=== PATIENT | female | born 1995 | race Caucasian/White ===

== ENCOUNTER 2019-10-04 17:03 | Emergency (ER) | payer BC ==
[~2019-10-04] VITALS: Ht 170.2 cm; Wt 72.6 kg
--- NOTE | 2019-10-04 17:19 | NUR ---
PT BIB SELF FOR MEDICAL CLEARANCE FOR [facility], SPIDER BITE AT R LEG, PT IS AAOX4, NOT IN RESPIRATORY DISTRESS, HOOKED TO MONITOR, KEPT RESTED AND COMFORTABLE, WILL CONTINUE TO MONITOR.
--- NOTE | 2019-10-04 18:30 | NUR ---
ER PHLEB AT BEDSIDE FOR BLOOD DRAW.
--- NOTE | 2019-10-04 18:36 | NUR ---
SEEN AND EXAMINED BY DAVE PICKERING
--- NOTE | 2019-10-04 18:37 | NUR ---
URINAL GIVEN BUT UNABLE TO PROVIDE URINE SPECIMEN THIS TIME.
[2019-10-04 18:41] LABS: BASOPHILS % (AUTO) 0.4 % (0.0-2.0); EOSINOPHILS % (AUTO) 1.2 % (0.0-6.0); HEMATOCRIT 37 % (33-45); HEMOGLOBIN 13.2 g/dL (11.5-14.8); LYMPHOCYTES # (AUTO) 1.6 /CMM (0.8-4.8); MEAN CORPUSCULAR HGB CONC 36 g/dl (31.0-36.0); MEAN CORPUSCULAR VOLUME 90 fL (82-100); MONOCYTES # (AUTO) 0.2 /CMM (0.1-1.30); MONOCYTES % (AUTO) 6.7 % (2.0-12.0); NEUTROPHILS # (AUTO) 1.6 /CMM (1.8-8.9); NEUTROPHILS % (AUTO) 45.7 % (43.0-81.0); PLATELET COUNT (AUTO) 185 /CMM (150-450); RED BLOOD CELL COUNT(AUTO) 4.08 MIL/uL (4.0-5.2); WHITE BLOOD COUNT (AUTO) 3.5 K/uL (4.3-11.0)
--- NOTE | 2019-10-04 18:47 | NUR ---
URINE SPECIMEN COLLECTED AND SENT TO LAB.
[2019-10-04 18:50] LABS: CALCIUM, SERUM 9.3 mg/dL (8.5-10.1); CARBON DIOXIDE 27 mmol/L (21-32); CHLORIDE 106 mmol/L (98-107); CREATININE 0.7 mg/dL (0.6-1.3); GLUCOSE 79 mg/dL (74-106); POTASSIUM 3.7 mmol/L (3.5-5.1); SODIUM SERUM 141 mmol/L (136-145); UREA NITROGEN, BLOOD 25 mg/dL (7-18)
[2019-10-04 18:56] LABS: APPEARANCE,URINE Clear (CLEAR); BILIRUBIN,URINE SMALL (NEGATIVE); BLOOD, URINE Small Ery/uL (NEGATIVE); COLOR,URINE Yellow (YELLOW); KETONES,URINE Negative (NEGATIVE); LEUKOCYTE ESTERASE ,URINE Negative (NEGATIVE); NITRITE, URINE Negative (NEGATIVE); PROTEIN,URINE Trace mg/dl (NEGATIVE); UGLUCOSE Negative (NEGATIVE)
[2019-10-04 18:56] LABS: ACETAMINOPHEN < 2 ug/ml (10-30); ALANINE AMINOTRANSFERASE 22 U/L (12-78); ALBUMIN 3.8 g/dL (3.4-5.0); ALCOHOL, BLOOD < 3 mg/dL (0-0); ALKALINE PHOSPHATASE 82 U/L (46-116); ASPARTATE AMINOTRANSFERASE 29 U/L (15-37); BILIRUBIN,DIRECT 0.2 mg/dL (0.0-0.2); BILIRUBIN,TOTAL 0.6 mg/dL (0.2-1.0); SALICYLATE 2.3 mg/dL (2.8-20.0); TOTAL PROTEIN, SERUM 7.4 g/dL (6.4-8.2)
[2019-10-04 19:06] LABS: BACTERIA,URINE Rare /HPF (None Seen); SQUAMOUS EPITHELIAL CELL,UR Few /HPF (None Seen); WBC,URINE 0-2 /HPF (0-3)
--- NOTE | 2019-10-04 19:43 | NUR ---
Pt ok to discharge per Lida PICKERING. Patient discharged to home in stable condition. Written and verbal after care instructions given. Patient verbalizes understanding of instruction.Patient is awake and alert to self, day, and place. Pt ambulatory with a steady gait
[2019-10-04 19:44] VITALS: BP 125/79
== END 2019-10-04 19:45 | disposition home or self-care (01) ==
LOC: ER 17:03
DX: L03.115 Cellulitis of right lower limb (principal); F14.10 Cocaine abuse, uncomplicated; F11.10 Opioid abuse, uncomplicated; G40.909 Epilepsy, unspecified, not intractable, without status epilepticus; F17.200 Nicotine dependence, unspecified, uncomplicated
CPT/HCPCS: 36415; 80048; 80076; 80305; 80307; 80329; 81001; 84703; 85025; 99283; 99406; G0480; 81000-TC

== ENCOUNTER 2019-11-01 15:03 | Emergency (ER) | payer BC ==
[~2019-11-01] VITALS: Ht 170.2 cm; Wt 72.6 kg
[2019-11-01 15:14] VITALS: BP 102/65
--- NOTE | 2019-11-01 15:30 | NUR ---
patient came in to the er c/o throat pain x 2 days. on room air, breathing evenly and unlabored. kept comfortable, will continue to monitor accordingly.
--- NOTE | 2019-11-01 15:50 | NUR ---
Patient discharged to home in stable condition. Written and verbal after care instructions given. Patient verbalizes understanding of instruction.
== END 2019-11-01 15:50 | disposition home or self-care (01) ==
LOC: ER 15:03
DX: J02.0 Streptococcal pharyngitis (principal); G40.909 Epilepsy, unspecified, not intractable, without status epilepticus; F17.200 Nicotine dependence, unspecified, uncomplicated; R59.0 Localized enlarged lymph nodes

== ENCOUNTER 2020-06-12 21:10 | Emergency (ER) | payer BC ==
[~2020-06-12] VITALS: Ht 167.6 cm; Wt 68.0 kg
[2020-06-12 21:10] VITALS: BP 121/93
[2020-06-12] MEDS ORDERED: LORAZEPAM 1 MG TABLET ONE (21:13)
[2020-06-12] MEDS: LORAZEPAM 1 MG TABLET PO ONE (21:16)
--- NOTE | 2020-06-12 21:25 | NUR ---
Patient is ambulatory with a steady gait.
--- NOTE | 2020-06-12 21:26 | NUR ---
PATIENT PICKED UP BY [facility].
--- NOTE | 2020-06-12 21:27 | NUR ---
Patient discharged to home in stable condition. Written and verbal after care instructions given. Patient verbalizes understanding of instruction.
== END 2020-06-12 21:28 | disposition home or self-care (01) ==
LOC: ER 21:14
DX: F13.20 Sedative, hypnotic or anxiolytic dependence, uncomplicated (principal); F41.9 Anxiety disorder, unspecified; G40.909 Epilepsy, unspecified, not intractable, without status epilepticus; F17.200 Nicotine dependence, unspecified, uncomplicated

== ENCOUNTER 2020-06-22 14:55 | Emergency (ER) | payer BC ==
[~2020-06-22] VITALS: Ht 170.2 cm; Wt 52.2 kg
--- NOTE | 2020-06-22 15:05 | NUR ---
CAME TO ER C/O SEIZURE X 2 TODAY. PATIENT A/OX4, BREATHING EVEN AND UNLABORED, NO SOB NOTED. NEEDS ATTENDED, KEPT COMFORTABLE.
[2020-06-22] MEDS ORDERED: LORAZEPAM INJ 2 MG/ML VIAL ONE ×2 (15:19→16:44)
[2020-06-22 15:24] LABS: BASOPHILS % (AUTO) 0.3 % (0.0-2.0); EOSINOPHILS % (AUTO) 9.5 % (0.0-6.0); HEMATOCRIT 36 % (33-45); HEMOGLOBIN 12.5 g/dL (11.5-14.8); LYMPHOCYTES # (AUTO) 1.4 /CMM (0.8-4.8); LYMPHOCYTES % (AUTO) 35.9 % (20.0-44.0); MEAN CORPUSCULAR HGB CONC 35 g/dl (31.0-36.0); MEAN CORPUSCULAR VOLUME 89 fL (82-100); MONOCYTES # (AUTO) 0.3 /CMM (0.1-1.30); MONOCYTES % (AUTO) 6.7 % (2.0-12.0); NEUTROPHILS # (AUTO) 1.8 /CMM (1.8-8.9); NEUTROPHILS % (AUTO) 47.6 % (43.0-81.0); PLATELET COUNT (AUTO) 195 /CMM (150-450); WHITE BLOOD COUNT (AUTO) 3.8 K/uL (4.3-11.0)
[2020-06-22] MEDS ORDERED: LORAZEPAM INJ 2 MG/ML VIAL IVP ONE ×2 (15:30→17:00)
[2020-06-22 15:33] LABS: CALCIUM, SERUM 9.2 mg/dL (8.5-10.1); CREATININE 0.8 mg/dL (0.6-1.3); POTASSIUM 4.8 mmol/L (3.5-5.1)
[2020-06-22 15:39] LABS: ALBUMIN 3.7 g/dL (3.4-5.0); BILIRUBIN,DIRECT 0.1 mg/dL (0.0-0.2); BILIRUBIN,TOTAL 0.4 mg/dL (0.2-1.0); TOTAL PROTEIN, SERUM 6.8 g/dL (6.4-8.2)
--- NOTE | 2020-06-22 16:34 | NUR ---
PATIENT TAKEN TO CT
--- NOTE | 2020-06-22 18:01 | NUR ---
AA/OX4, breathing even and unlabored, no sob noted. Needs attended. IV removed. Catheter intact and site benign. Pressure and 4x4 applied to site. No bleeding noted.Patient discharged to home in stable condition. Written and verbal after care instructions given. Patient verbalizes understanding of instruction.
[2020-06-22 18:03] VITALS: BP 126/72
== END 2020-06-22 18:03 | disposition home or self-care (01) ==
LOC: ER 14:59
DX: G40.909 Epilepsy, unspecified, not intractable, without status epilepticus (principal)
CPT/HCPCS: 36415; 70450; 80048; 80076; 80184; 80305; 84703; 85025; 96374; 96376; 99284; J2060 ×2

== ENCOUNTER 2020-10-09 16:03 | Emergency (ER) | payer BC ==
[~2020-10-09] VITALS: Ht 170.2 cm; Wt 54.4 kg
[2020-10-09 16:49] VITALS: BP 117/66
[2020-10-09] MEDS ORDERED: LORAZEPAM 1 MG TABLET ONE (16:55)
[2020-10-09] MEDS ORDERED: LORAZEPAM 1 MG TABLET PO ONE (17:00)
--- NOTE | 2020-10-09 18:18 | NUR ---
COVID NEGATIVE RESULT PER LAB.
--- NOTE | 2020-10-09 18:42 | NUR ---
Patient discharged to home in stable condition. Written and verbal after care instructions given. Patient verbalizes understanding of instruction.
== END 2020-10-09 17:30 | disposition home or self-care (01) ==
LOC: ER 16:04
DX: Z00.00 Encounter for general adult medical examination without abnormal findings (principal); F13.239 Sedative, hypnotic or anxiolytic dependence with withdrawal, unspecified; Z20.828 Contact with and (suspected) exposure to other viral communicable diseases; G40.909 Epilepsy, unspecified, not intractable, without status epilepticus; F17.200 Nicotine dependence, unspecified, uncomplicated; R00.0 Tachycardia, unspecified; Z88.8 Allergy status to other drugs, medicaments and biological substances; F11.20 Opioid dependence, uncomplicated
CPT/HCPCS: 87426; 99283; C9803